=== PATIENT | male | born 1995 | race Caucasian/White ===

== ENCOUNTER 2018-02-02 11:51 | Emergency (ER) | payer OTHER ==
[2018-02-02 11:51] VITALS: BMI 53.8
[2018-02-02 12:14] VITALS: O2SAT 100
--- NOTE | 2018-02-02 12:43 | ED PDOC ---
HPI: Dental Pain/Injury Time Seen by Provider: 02/02/18 12:20 Chief Complaint (Nursing): Dental Pain Chief Complaint (Provider): bumps on tongue History Per: Patient History/Exam Limitations: no limitations Onset/Duration Of Symptoms: Other (2 weeks) Additional Complaint(s): 22 year old male presents to the ED for evaluation of "bumps" on the back of his tongue x 2 weeks. Patient can eat and drink well. Denies fever or throat pain. He states he is not sure if bumps have always been there or if he just noticed them. PMD: No Family Provider Past Medical History Reviewed: Historical Data, Nursing Documentation, Vital Signs Vital Signs: Last Vital Signs Temp 98.0 F 02/02/18 12:12 Pulse 78 02/02/18 12:12 Resp 16 02/02/18 12:12 BP 152/88 H 02/02/18 12:12 Pulse Ox 100 02/02/18 12:12 - Medical History PMH: No Chronic Diseases - Surgical History Surgical History: Appendectomy, Tonsillectomy - Family History Family History: States: No Known Family Hx - Living Arrangements Living Arrangements: With Family - Social History Current smoker - smoking cessation education provided: Yes (Light Smoker < 10 Cigarettes Daily) Alcohol: Social Drugs: Cannabis - Allergies Allergies/Adverse Reactions: Allergies Allergy/AdvReac Type Severity Reaction Status Date / Time No Known Allergies Allergy Verified 02/02/18 12:12 Review of Systems ROS Statement: Except As Marked, All Systems Reviewed And Found Negative Constitutional: Negative for: Fever ENT: Positive for: Other (bumps on tongue). Negative for: Throat Pain Respiratory: Negative for: Cough Gastrointestinal: Negative for: Nausea, Vomiting Neurological: Negative for: Headache, Dizziness Physical Exam - Reviewed Nursing Documentation Reviewed: Yes Vital Signs Reviewed: Yes - Physical Exam Appears: Positive for: Well, Non-toxic, No Acute Distress Head Exam: Positive for: ATRAUMATIC, NORMAL INSPECTION, NORMOCEPHALIC Skin: Positive for: Normal Color, Warm. Negative for: Rash Eye Exam: Positive for: Normal appearance ENT: Positive for: Normal ENT Inspection, Other (normal appearing tongue, no infection or suspicious lesions noted) Neurologic/Psych: Positive for: Alert, Oriented (x3) - ECG O2 Sat by Pulse Oximetry: 100 (RA) Pulse Ox Interpretation: Normal Medical Decision Making Medical Decision Making: Time: 1220 Impression: 22 year old male for evaluation of possible tongue abnormality Physical exam findings are normal. Patient was advised to take NSAIDs for pain relief as needed and follow-up with dentist or ENT, referral provided. Scribe Attestation: Documented by Ida Cifuentes, acting as a scribe for Marian Harding PA-C Provider Scribe Attestation: All medical record entries made by the Scribe were at my direction and personally dictated by me. I have reviewed the chart and agree that the record accurately reflects my personal performance of the history, physical exam, medical decision making, and the department course for this patient. I have also personally directed, reviewed, and agree with the discharge instructions and disposition. Disposition - Clinical Impression Clinical Impression: Normal exam - Patient ED Disposition Is Patient to be Admitted: No Counseled Patient/Family Regarding: Need For Followup - Disposition Referrals: Wili Babcock MD [Staff Provider] - Disposition: Routine/Home Disposition Time: 12:42 Condition: STABLE Additional Instructions: Tylenol or Advil for pain as needed. Follow-up with dentist or ENT for any further concerns. Instructions: Yearly Physical for Adults, How to Care for Your Mouth and Teeth Forms: [facility] ([place])
[2018-02-02 12:59] VITALS: BP 135/81; PULSE 84; RESP 15; TEMP 98.2
== END 2018-02-02 13:19 | disposition home or self-care (01) ==
LOC: H.ER 11:51
DX: Z00.00 Encounter for general adult medical examination without abnormal findings (principal)